=== PATIENT | female | born 2005 | race Caucasian/White ===

== ENCOUNTER 2025-03-03 18:10 | Emergency (ER) | payer OTHER, SELFPAY ==
--- OUTSIDE RECORDS SUMMARY | 2025-03-03 18:13 | XMS_ITS | Patient Health Record ---
Author Organization [facility] [employer] Address [address] [facility] [address] [place] [address] Care Team Providers Care Medicare Sales Executive Name Role Phone WyattMartín kennedy Unavailable [phone] James Pa Unavailable [phone] Results Component Value Reference Range Notes UDT Reviewed date:07/14/2024 01:54:28 PM Interpretation: Performing Lab: Notes/Report: THC P 0 - 50 ng/ml Cocaine N 0 - 300 ng/ml Amphetamine N 0 - 1000 ng/ml Buprenorphine (BUP) N 0 - 10 ng/ml Secobarbital (Bar) N 0 - 300 ng/ml Oxazepam (BZO) N 0 - 300 ng/ml 4-kpcnntgxqn-6,4-gleshcdw-7,3-diphenylpyrrolidine (AMANUEL P) N 0 - 300 ng/ml Methamphetamine (MET) N 0 - 1000 ng/ml Methylenedioxymethamphetamine (MDMA) N 0 - 500 ng/ml Morphine (MOP 300/[id number]) N 0 - 300 ng/ml Methadone (MTD) N 0 - 300 ng/ml Phencyclidine (PCP) N 0 - 25 ng/ml Nortriptyline (TCA) N 0 - 1000 ng/ml Oxycodone N 0 - 300 ng/ml x N 0 - 300 ng/ml Reason For Referral No Information Medications Medication SIG (Take, Route, Frequency, Duration) Notes Start Date End Date Status Contrave 8-90 MG TAKE ONE TABLET BY M OUTH EVERY DAY Oral for 14 Days Active metFORMIN HCl 500 MG TAKE TWO TABLETS BY MOUTH TWICE A DAY Oral for 30 Days Active Vitamin D 50 MCG (1999 UT) 1 tablet Oral ly Once a day Active ARIPiprazole 15 MG 1 tablet Orally Once a day for 14 days 07/14/2024 Active Tri-Rosalind 0.18/0.215/0.25 MG-35 MCG TAKE ONE TABLET BY MOUTH EVERY DAY Oral for 84 Days Active Social History Tobacco Use: Social History Observation Description Date Details (start date - stop date) Current Smoker NA - NA Sex Assigned At : Social History Observation Description Sex Assigned At Female Household Question Answer Notes Number of adults in household: T he patient is currently living with her mother and younger brother 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 Tobacco Control (Standard) Question Answer Notes Tobacco use: Current smoker How soon after you wake up d o you smoke your first cigarette? Within 5 minutes Are you interested in quitting? Thinking about q uitting AUDIT-C (Standard) Question Answer Notes Points 7 Interpretation Positive Did you have a drink contain ing alcohol in the past year? Yes How often did you have six o r more drinks on one occasion in the past year? 2 to 4 times a month (2 points) How many drinks did you have on a typical day when you were drinking in the past year? 5 or 6 drinks (2 points) How often did you have a dri nk containing alcohol in the past year? 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) Marijuana use (F12.90) Active confirmed Problem Insomnia disorder related to another mental disorder (35024645) Psychophysiological insomnia (F51.04) Active confirmed Vital Signs Heart Rate 85 /min 07/14/2024 Blood pressure diastolic 54 mm Hg 07/14/2024 Weight-kg 77.2 kg 07/14/2024 Blood pressure systolic 90 mm Hg 07/14/2024 Weight 170.2 lbs 07/14/2024 Procedures Procedure Date Ordered Date Performed Result Body Sit e ADHD Testing 07/14/2024 N/A Encounters Encounter Location Date Provider Diagnosis [facility] [address] [place] [address] 07/14/2024 Martín Clubb Bipolar 2 disorder F 31.81 ; Marijuana use F12.90 ; Psychophysiological insomnia F51.04 ; Nonsuicidal self-harm R45.88 ; ADHD (attention deficit hyperactivity disorder) evaluation Z13.39 ; Nightmares F51.5 and ALCIRA (generalized anxiety disorder) F41.1 [facility] [address] [place] [address] 07/31/2024 Jamesvicki Sandhua Assessments Encounter Date Diagnosis (ICD Code) Assessment Notes Treatment Notes Treatment Clinical Notes Section Notes 07/14/2024 Bipolar 2 disorder (ICD-10 - F31.81) Call for problems with medication, side effects or need for dosage change. adherence to medications discussed. Compliance issues reviewed, Discussed medication side effects. Discussion of avoiding stress, marijuana, alcohol. Healthy lifestyle discussed with patient, including diet, vitamin supplement, exercise, non-smoking, safe sexual practices and reduction of stress. Assessment and plan reviewed with patient. Treatment options reviewed 1. Bipolar II Disorder - Plan: Discontinue Vraylar due to adverse effects and ineffectiveness for depressive symptoms (patient reports she has not taken this medication for weeks/months). Start Aripiprazole 15 mg daily, aiming to increase to 30 mg daily. Monitor for insomnia and weight gain, advising the patient on the best time to take medication based on side effects. Schedule a follow-up in two weeks to evaluate Aripiprazole's effectiveness and consider switching to an extended-release version if well-tolerated. 2. Post-Traumatic Stress Disorder (PTSD) and Nightmares - Plan: Postpone medication for nightmares until the patient is stabilized on Aripiprazole and bipolar symptoms are managed. Encourage establishing care with a therapist for ongoing psychotherapy. She reports experiencing nightmares almost nightly. 3. Anxiety Disorder - Plan: Continue to monitor anxiety levels during follow-up visits. Recommend therapy for anxiety management. She rates current anxiety at 9/10. 4. Attention Deficit Hyperactivity Disorder (ADHD) - Suspected - Plan: Arrange an ADHD assessment. Plan a follow-up appointment one week post-assessment to discuss the results and potential treatment options if ADHD is diagnosed. 5. Sleep Disturbance - Plan: Assess sleep quality and duration during subsequent visits. Address sleep issues by managing bipolar and PTSD symptoms. She reports obtaining 3-4 hours of sleep per night. 6. Vitamin D Deficiency - Suspected - Plan: Order comprehensive blood work, including checks for vitamin D, thyroid, liver, CBC, and CMP levels. Advise the patient to continue prescribed vitamin D supplements, with a possibility of adjusting the dosage based on lab outcomes. She reports taking 5,000 IU of vitamin D twice daily. 7. Tobacco and Cannabis Use - Plan: Encourage the continuation of Contrave for nicotine addiction management. Monitor medication response and consider dosage adjustments, especially regarding the potential impact of smoking on medication efficacy. She reports occasional vaping of nicotine and cannabis use on weekends. 8. Self-Harm - Plan: Advise the patient to maintain a clean and safe environment when engaging in self-harm behaviors and use Neosporin to prevent infection. Address self-harm through therapy and management of underlying mental health conditions. She reports using cutting or burning as methods of self-harm. 9. Paranoia - Plan: Monitor paranoid thoughts, which she reports experiencing almost every night, particularly when unable to sleep. 07/14/2024 Marijuana use (ICD-1 0 - F12.90) 1. Bipolar II Disorder - Plan: Discontinue Vraylar due to adverse effects and ineffectiveness for depressive symptoms (patient reports she has not taken this medication for weeks/months). Start Aripiprazole 15 mg daily, aiming to increase to 30 mg daily. Monitor for insomnia and weight gain, advising the patient on the best time to take medication based on side effects. Schedule a follow-up in two weeks to evaluate Aripiprazole's effectiveness and consider switching to an extended-release version if well-tolerated. 2. Post-Traumatic Stress Disorder (PTSD) and Nightmares - Plan: Postpone medication for nightmares until the patient is stabilized on Aripiprazole and bipolar symptoms are managed. Encourage establishing care with a therapist for ongoing psychotherapy. She reports experiencing nightmares almost nightly. 3. Anxiety Disorder - Plan: Continue to monitor anxiety levels during follow-up visits. Recommend therapy for anxiety management. She rates current anxiety at 9/10. 4. Attention Deficit Hyperactivity Disorder (ADHD) - Suspected - Plan: Arrange an ADHD assessment. Plan a follow-up appointment one week post-assessment to discuss the results and potential treatment options if ADHD is diagnosed. 5. Sleep Disturbance - Plan: Assess sleep quality and duration during subsequent visits. Address sleep issues by managing bipolar and PTSD symptoms. She reports obtaining 3-4 hours of sleep per night. 6. Vitamin D Deficiency - Suspected - Plan: Order comprehensive blood work, including checks for vitamin D, thyroid, liver, CBC, and CMP levels. Advise the patient to continue prescribed vitamin D supplements, with a possibility of adjusting the dosage based on lab outcomes. She reports taking 5,000 IU of vitamin D twice daily. 7. Tobacco and Cannabis Use - Plan: Encourage the continuation of Contrave for nicotine addiction management. Monitor medication response and consider dosage adjustments, especially regarding the potential impact of smoking on medication efficacy. She reports occasional vaping of nicotine and cannabis use on weekends. 8. Self-Harm - Plan: Advise the patient to maintain a clean and safe environment when engaging in self-harm behaviors and use Neosporin to prevent infection. Address self-harm through therapy and management of underlying mental health conditions. She reports using cutting or burning as methods of self-harm. 9. Paranoia - Plan: Monitor paranoid thoughts, which she reports experiencing almost every night, particularly when unable to sleep. 07/14/2024 Psychophysiological insomnia (ICD-10 - F51.04) 1. Bipolar II Disorder - Plan: Discontinue Vraylar due to adverse effects and ineffectiveness for depressive symptoms (patient reports she has not taken this medication for weeks/months). Start Aripiprazole 15 mg daily, aiming to increase to 30 mg daily. Monitor for insomnia and weight gain, advising the patient on the best time to take medication based on side effects. Schedule a follow-up in two weeks to evaluate Aripiprazole's effectiveness and consider switching to an extended-release version if well-tolerated. 2. Post-Traumatic Stress Disorder (PTSD) and Nightmares - Plan: Postpone medication for nightmares until the patient is stabilized on Aripiprazole and bipolar symptoms are managed. Encourage establishing care with a therapist for ongoing psychotherapy. She reports experiencing nightmares almost nightly. 3. Anxiety Disorder - Plan: Continue to monitor anxiety levels during follow-up visits. Recommend therapy for anxiety management. She rates current anxiety at 9/10. 4. Attention Deficit Hyperactivity Disorder (ADHD) - Suspected - Plan: Arrange an ADHD assessment. Plan a follow-up appointment one week post-assessment to discuss the results and potential treatment options if ADHD is diagnosed. 5. Sleep Disturbance - Plan: Assess sleep quality and duration during subsequent visits. Address sleep issues by managing bipolar and PTSD symptoms. She reports obtaining 3-4 hours of sleep per night. 6. Vitamin D Deficiency - Suspected - Plan: Order comprehensive blood work, including checks for vitamin D, thyroid, liver, CBC, and CMP levels. Advise the patient to continue prescribed vitamin D supplements, with a possibility of adjusting the dosage based on lab outcomes. She reports taking 5,000 IU of vitamin D twice daily. 7. Tobacco and Cannabis Use - Plan: Encourage the continuation of Contrave for nicotine addiction management. Monitor medication response and consider dosage adjustments, especially regarding the potential impact of smoking on medication efficacy. She reports occasional vaping of nicotine and cannabis use on weekends. 8. Self-Harm - Plan: Advise the patient to maintain a clean and safe environment when engaging in self-harm behaviors and use Neosporin to prevent infection. Address self-harm through therapy and management of underlying mental health conditions. She reports using cutting or burning as methods of self-harm. 9. Paranoia - Plan: Monitor paranoid thoughts, which she reports experiencing almost every night, particularly when unable to sleep. 07/14/2024 Nonsuicidal self-shadia m (ICD-10 - R45.88) 1. Bipolar II Disorder - Plan: Discontinue Vraylar due to adverse effects and ineffectiveness for depressive symptoms (patient reports she has not taken this medication for weeks/months). Start Aripiprazole 15 mg daily, aiming to increase to 30 mg daily. Monitor for insomnia and weight gain, advising the patient on the best time to take medication based on side effects. Schedule a follow-up in two weeks to evaluate Aripiprazole's effectiveness and consider switching to an extended-release version if well-tolerated. 2. Post-Traumatic Stress Disorder (PTSD) and Nightmares - Plan: Postpone medication for nightmares until the patient is stabilized on Aripiprazole and bipolar symptoms are managed. Encourage establishing care with a therapist for ongoing psychotherapy. She reports experiencing nightmares almost nightly. 3. Anxiety Disorder - Plan: Continue to monitor anxiety levels during follow-up visits. Recommend therapy for anxiety management. She rates current anxiety at 9/10. 4. Attention Deficit Hyperactivity Disorder (ADHD) - Suspected - Plan: Arrange an ADHD assessment. Plan a follow-up appointment one week post-assessment to discuss the results and potential treatment options if ADHD is diagnosed. 5. Sleep Disturbance - Plan: Assess sleep quality and duration during subsequent visits. Address sleep issues by managing bipolar and PTSD symptoms. She reports obtaining 3-4 hours of sleep per night. 6. Vitamin D Deficiency - Suspected - Plan: Order comprehensive blood work, including checks for vitamin D, thyroid, liver, CBC, and CMP levels. Advise the patient to continue prescribed vitamin D supplements, with a possibility of adjusting the dosage based on lab outcomes. She reports taking 5,000 IU of vitamin D twice daily. 7. Tobacco and Cannabis Use - Plan: Encourage the continuation of Contrave for nicotine addiction management. Monitor medication response and consider dosage adjustments, especially regarding the potential impact of smoking on medication efficacy. She reports occasional vaping of nicotine and cannabis use on weekends. 8. Self-Harm - Plan: Advise the patient to maintain a clean and safe environment when engaging in self-harm behaviors and use Neosporin to prevent infection. Address self-harm through therapy and management of underlying mental health conditions. She reports using cutting or burning as methods of self-harm. 9. Paranoia - Plan: Monitor paranoid thoughts, which she reports experiencing almost every night, particularly when unable to sleep. 07/14/2024 ADHD (attention deficit hyperactivity disorder) evaluation (ICD-10 - Z13.39) 1. Bipolar II Disorder - Plan: Discontinue Vraylar due to adverse effects and ineffectiveness for depressive symptoms (patient reports she has not taken this medication for weeks/months). Start Aripiprazole 15 mg daily, aiming to increase to 30 mg daily. Monitor for insomnia and weight gain, advising the patient on the best time to take medication based on side effects. Schedule a follow-up in two weeks to evaluate Aripiprazole's effectiveness and consider switching to an extended-release version if well-tolerated. 2. Post-Traumatic Stress Disorder (PTSD) and Nightmares - Plan: Postpone medication for nightmares until the patient is stabilized on Aripiprazole and bipolar symptoms are managed. Encourage establishing care with a therapist for ongoing psychotherapy. She reports experiencing nightmares almost nightly. 3. Anxiety Disorder - Plan: Continue to monitor anxiety levels during follow-up visits. Recommend therapy for anxiety management. She rates current anxiety at 9/10. 4. Attention Deficit Hyperactivity Disorder (ADHD) - Suspected - Plan: Arrange an ADHD assessment. Plan a follow-up appointment one week post-assessment to discuss the results and potential treatment options if ADHD is diagnosed. 5. Sleep Disturbance - Plan: Assess sleep quality and duration during subsequent visits. Address sleep issues by managing bipolar and PTSD symptoms. She reports obtaining 3-4 hours of sleep per night. 6. Vitamin D Deficiency - Suspected - Plan: Order comprehensive blood work, including checks for vitamin D, thyroid, liver, CBC, and CMP levels. Advise the patient to continue prescribed vitamin D supplements, with a possibility of adjusting the dosage based on lab outcomes. She reports taking 5,000 IU of vitamin D twice daily. 7. Tobacco and Cannabis Use - Plan: Encourage the continuation of Contrave for nicotine addiction management. Monitor medication response and consider dosage adjustments, especially regarding the potential impact of smoking on medication efficacy. She reports occasional vaping of nicotine and cannabis use on weekends. 8. Self-Harm - Plan: Advise the patient to maintain a clean and safe environment when engaging in self-harm behaviors and use Neosporin to prevent infection. Address self-harm through therapy and management of underlying mental health conditions. She reports using cutting or burning as methods of self-harm. 9. Paranoia - Plan: Monitor paranoid thoughts, which she reports experiencing almost every night, particularly when unable to sleep. 07/14/2024 Nightmares (ICD-10 - F51.5) 1. Bipolar II Disorder - Plan: Discontinue Vraylar due to adverse effects and ineffectiveness for depressive symptoms (patient reports she has not taken this medication for weeks/months). Start Aripiprazole 15 mg daily, aiming to increase to 30 mg daily. Monitor for insomnia and weight gain, advising the patient on the best time to take medication based on side effects. Schedule a follow-up in two weeks to evaluate Aripiprazole's effectiveness and consider switching to an extended-release version if well-tolerated. 2. Post-Traumatic Stress Disorder (PTSD) and Nightmares - Plan: Postpone medication for nightmares until the patient is stabilized on Aripiprazole and bipolar symptoms are managed. Encourage establishing care with a therapist for ongoing psychotherapy. She reports experiencing nightmares almost nightly. 3. Anxiety Disorder - Plan: Continue to monitor anxiety levels during follow-up visits. Recommend therapy for anxiety management. She rates current anxiety at 9/10. 4. Attention Deficit Hyperactivity Disorder (ADHD) - Suspected - Plan: Arrange an ADHD assessment. Plan a follow-up appointment one week post-assessment to discuss the results and potential treatment options if ADHD is diagnosed. 5. Sleep Disturbance - Plan: Assess sleep quality and duration during subsequent visits. Address sleep issues by managing bipolar and PTSD symptoms. She reports obtaining 3-4 hours of sleep per night. 6. Vitamin D Deficiency - Suspected - Plan: Order comprehensive blood work, including checks for vitamin D, thyroid, liver, CBC, and CMP levels. Advise the patient to continue prescribed vitamin D supplements, with a possibility of adjusting the dosage based on lab outcomes. She reports taking 5,000 IU of vitamin D twice daily. 7. Tobacco and Cannabis Use - Plan: Encourage the continuation of Contrave for nicotine addiction management. Monitor medication response and consider dosage adjustments, especially regarding the potential impact of smoking on medication efficacy. She reports occasional vaping of nicotine and cannabis use on weekends. 8. Self-Harm - Plan: Advise the patient to maintain a clean and safe environment when engaging in self-harm behaviors and use Neosporin to prevent infection. Address self-harm through therapy and management of underlying mental health conditions. She reports using cutting or burning as methods of self-harm. 9. Paranoia - Plan: Monitor paranoid thoughts, which she reports experiencing almost every night, particularly when unable to sleep. 07/14/2024 ALCIRA (generalized anxiety disorder) (ICD-10 - F41.1) 1. Bipolar II Disorder - Plan: Discontinue Vraylar due to adverse effects and ineffectiveness for depressive symptoms (patient reports she has not taken this medication for weeks/months). Start Aripiprazole 15 mg daily, aiming to increase to 30 mg daily. Monitor for insomnia and weight gain, advising the patient on the best time to take medication based on side effects. Schedule a follow-up in two weeks to evaluate Aripiprazole's effectiveness and consider switching to an extended-release version if well-tolerated. 2. Post-Traumatic Stress Disorder (PTSD) and Nightmares - Plan: Postpone medication for nightmares until the patient is stabilized on Aripiprazole and bipolar symptoms are managed. Encourage establishing care with a therapist for ongoing psychotherapy. She reports experiencing nightmares almost nightly. 3. Anxiety Disorder - Plan: Continue to monitor anxiety levels during follow-up visits. Recommend therapy for anxiety management. She rates current anxiety at 9/10. 4. Attention Deficit Hyperactivity Disorder (ADHD) - Suspected - Plan: Arrange an ADHD assessment. Plan a follow-up appointment one week post-assessment to discuss the results and potential treatment options if ADHD is diagnosed. 5. Sleep Disturbance - Plan: Assess sleep quality and duration during subsequent visits. Address sleep issues by managing bipolar and PTSD symptoms. She reports obtaining 3-4 hours of sleep per night. 6. Vitamin D Deficiency - Suspected - Plan: Order comprehensive blood work, including checks for vitamin D, thyroid, liver, CBC, and CMP levels. Advise the patient to continue prescribed vitamin D supplements, with a possibility of adjusting the dosage based on lab outcomes. She reports taking 5,000 IU of vitamin D twice daily. 7. Tobacco and Cannabis Use - Plan: Encourage the continuation of Contrave for nicotine addiction management. Monitor medication response and consider dosage adjustments, especially regarding the potential impact of smoking on medication efficacy. She reports occasional vaping of nicotine and cannabis use on weekends. 8. Self-Harm - Plan: Advise the patient to maintain a clean and safe environment when engaging in self-harm behaviors and use Neosporin to prevent infection. Address self-harm through therapy and management of underlying mental health conditions. She reports using cutting or burning as methods of self-harm. 9. Paranoia - Plan: Monitor paranoid thoughts, which she reports experiencing almost every night, particularly when unable to sleep. 07/14/2024 Other Learning About Depression Screening material was printed, Aripiprazole Oral Tablet 15 mg (ARIPIPRAZOLE - ORAL) material was published The patient has previously tried Lamotrigine, Vraylar, and Fluoxetine without satisfactory results. Currently, the patient is experiencing side effects such as brain fog from Vraylar 1. Bipolar II Disorder - Plan: Discontinue Vraylar due to adverse effects and ineffectiveness for depressive symptoms (patient reports she has not taken this medication for weeks/months). Start Aripiprazole 15 mg daily, aiming to increase to 30 mg daily. Monitor for insomnia and weight gain, advising the patient on the best time to take medication based on side effects. Schedule a follow-up in two weeks to evaluate Aripiprazole's effectiveness and consider switching to an extended-release version if well-tolerated. 2. Post-Traumatic Stress Disorder (PTSD) and Nightmares - Plan: Postpone medication for nightmares until the patient is stabilized on Aripiprazole and bipolar symptoms are managed. Encourage establishing care with a therapist for ongoing psychotherapy. She reports experiencing nightmares almost nightly. 3. Anxiety Disorder - Plan: Continue to monitor anxiety levels during follow-up visits. Recommend therapy for anxiety management. She rates current anxiety at 9/10. 4. Attention Deficit Hyperactivity Disorder (ADHD) - Suspected - Plan: Arrange an ADHD assessment. Plan a follow-up appointment one week post-assessment to discuss the results and potential treatment options if ADHD is diagnosed. 5. Sleep Disturbance - Plan: Assess sleep quality and duration during subsequent visits. Address sleep issues by managing bipolar and PTSD symptoms. She reports obtaining 3-4 hours of sleep per night. 6. Vitamin D Deficiency - Suspected - Plan: Order comprehensive blood work, including checks for vitamin D, thyroid, liver, CBC, and CMP levels. Advise the patient to continue prescribed vitamin D supplements, with a possibility of adjusting the dosage based on lab outcomes. She reports taking 5,000 IU of vitamin D twice daily. 7. Tobacco and Cannabis Use - Plan: Encourage the continuation of Contrave for nicotine addiction management. Monitor medication response and consider dosage adjustments, especially regarding the potential impact of smoking on medication efficacy. She reports occasional vaping of nicotine and cannabis use on weekends. 8. Self-Harm - Plan: Advise the patient to maintain a clean and safe environment when engaging in self-harm behaviors and use Neosporin to prevent infection. Address self-harm through therapy and management of underlying mental health conditions. She reports using cutting or burning as methods of self-harm. 9. Paranoia - Plan: Monitor paranoid thoughts, which she reports experiencing almost every night, particularly when unable to sleep. Plan Of Treatment Pending Test Test Name Order Date Vitamin D, 1,25 Dihydroxy 07/14/2024 CBC 07/14/2024 COMPREHENSIVE METABOLIC PANEL (77042) AST (822) 07/14/2024 ALT (823) 07/14/2024 VITAMIN B12 (927) 07/14/2024 TSH W/REFLEX TO FT4 (74461) 07/14/2024 ADHD Testing 07/14/2024 Insurance Providers Payer Name Payer Address Payer Phone Subscriber Number Group Number Insured Name Patient Relationship to Insured Coverage Start Date Coverage End Date [facility] [address] [place] [address] [id number] Tiffanie Martin Self - patient is the insured [facility] [address] [place] [address] [id number] Tiffanie Martin Self - patient is the insured Medical (General) History Medical History History ICD Code Past Psychiatric History: PTSD,Major Dep ressive Episode,Bipolar Disorder abdominal aortic aneurysm: No atrial fibrillation: No chronic fatigue syndrome: No essential tremor: No hyperlipidemia: No hypertension: No Parkinson's disease: No restless leg syndrome: No stroke: No subdural hematoma: No type 1 diabetes mellitus: No type 2 diabetes mellitus: No vitamin B12 deficiency: No vitamin D deficiency: Yes
[2025-03-03 18:16] VITALS: BP 150/100; PULSE 126; RESP 18; TEMP 36.2; O2SAT 98
--- NOTE | 2025-03-03 18:25 | ECG_ITS ---
Test Date: 2025-03-03 18:49:20 Measurements Intervals Mobile Rate: 93 P: 11 AR: 156 QRS: 24 QRSD: 81 T: 26 QT: 325 QTc: 405 Interpretive Statements SINUS RHYTHM RSR' IN V1 OR V2, PROBABLY NORMAL VARIANT BASELINE ARTIFACT- III, V6 BORDERLINE ECG No previous ECG available for comparison Electronically Signed On 03-03-2025 20:09:03 CDT by Luis Egan D.O.
[2025-03-03 18:38] VITALS: O2SAT 97
[2025-03-03 18:40] LABS: Basophils Absolute Auto 0.1 K/mm3 (0.0-0.1); Basophils Percent Auto 0.4 % (0.2-1.2); Eosinophils Absolute Auto 0.6 K/mm3 (0-0.3); Eosinophils Percent Auto 4.3 % (0-4.4); Hematocrit 37.5 % (37.0-47.0); Hemoglobin 12.3 g/dL (12.0-15.0); Immature Granulocyte Absolute 0.06 K/mm3 (0.00-0.031); Immature Granulocyte Percent A 0.5 % (0-0.5); Lymphocytes Percent Auto 31.3 % (18.3-44.2); Mean Corpuscular HGB Conc 32.8 g/dl (32-36); Mean Corpuscular Hemoglobin 29.9 pg (26-34); Mean Corpuscular Volume 91.2 fl (80-100); Mean Platelet Volume 9.5 fl (7.4-10.4); Monocytes Absolute Auto 0.9 K/mm3 (0.1-0.6); Monocytes Percent Auto 6.8 % (2.6-8.5); Neutrophils Absolute Auto 7.4 K/mm3 (1.3-6.7); Neutrophils Percent Auto 56.7 % (45.5-73.1); Platelet Count Result 313 k/mm3 (150-375); Red Blood Count 4.11 M/mm3 (4.2-5.4); Red Cell Distribution Width 11.9 % (11.5-14.5); White Blood Count 13.1 K/mm3 (4.5-10.0)
[2025-03-03 18:50] LABS: Alanine Aminotransferase 23 U/L (6-35); Albumin Level 3.6 g/dL (3.5-5.1); Alkaline Phosphatase 81 U/L (38-126); Anion Gap 8 mmol/L (4-12); Aspartate Amino Transferase 22 U/L (14-36); Bilirubin,Total 0.2 mg/dL (0.2-1.3); Blood Urea Nitrogen 8 mg/dL (7-17); Carbon Dioxide 22 mmol/L (22-30); Chloride 106 mmol/L (98-107); Estimated CRCL calculation 160 ml/min; Estimated Glomerular Filt Rate > 60; Glucose 101 mg/dL (65-110); Potassium 3.6 mmol/L (3.4-5.0); Sodium 136 mmol/L (137-145)
[2025-03-03 19:50] VITALS: PULSE 88; RESP 20; O2SAT 94
--- NOTE | 2025-03-03 20:29 | ED.GENADULT ---
HPI - General Adult General Chief complaint: Shortness of Breath/Dyspnea Stated complaint: positive whooping cough, 22 weeks pregn, SOB Time Seen by Provider: 03/03/25 18:32 History of Present Illness HPI narrative: 19-year-old female that is approximately 22 weeks presents emergency department for evaluation for poorly controlled cough. Patient was recently diagnosed with per ptosis and is currently antibiotics. Patient states that she is having persistent cough and describes bronchospasms. Patient did excessive coughing in the emergency department. Related Data Home Medications ?Medication ?Instructions ?Recorded ?Confirmed ?Last Taken ?Type docusate sodium 100 mg capsule 100 mg PO DAILY 01/12/25 02/23/25 Unknown History (Colace) vits no.126-ferrous fum tablet PO 01/12/25 02/23/25 Unknown History 28 mg iron-folic acid 800 mcg tablet (Classic ) Allergies Allergy/AdvReac Type Severity Reaction Status Date / Time No Known Allergies Allergy Verified 03/03/25 18:11 Review of Systems Review of Systems: All systems reviewed & are unremarkable except as noted in HPI and below PMFSH Surgical History Surgical History Hx of tonsillectomy H/O bilateral breast reduction surgery Family History Family History Mother Diabetes mellitus Father Heart disease Hypertension Lung cancer Other Asthma Social History Social History Smoking status: Former smoker Tobacco type: e-cigarettes/vaping Alcohol intake: current Alcohol use details: rarely Substance use: former Substance use type: marijuana and crack/cocaine Do You Feel Safe in your Home?: Yes Lack of Transportation: No Lack of Food: Never True Current Housing: I Have Housing Concerned About Future Housing: No Difficulty Paying Gas/Electric Bills: No Difficulty Paying for Meds: No Currently Unemployed: No Education: High School Diploma/GED Difficulty w/ Childcare or Family Care: No Living arrangements: with family Occupation/Education: unemployed Gender identity (if verbalized by the patient): Female Exam Narrative: APPEARANCE: Well appearing, no pain, no distress, well-nourished. HEAD: normocephalic, atraumatic. EYES: PERRLA/EOMI, conjunctivae clear. NOSE: Normal no drainage EARS:TMS clear with good light reflex. THROAT: Pharynx clear, no exudate. NECK: Supple. No adenopathy, no masses. RESPIRATORY: Airway patent, respirations nonlabored. Clear to auscultation bilaterally, no rales, rhonchi, wheezing. CARDIOVASCULAR: Regular rate and rhythm without murmurs rubs or gallops. ABDOMINAL: Soft, nontender, nondistended, normal bowel sounds MUSCULOSKELETAL: Moves all extremities. Strength/ROM intact, No edema, No calf tenderness. NEURO: Alert. Cranial nerves II through XII intact. Good gait. Good coordination SKIN: Warm, dry. Normal Color Course Vital Signs Vital signs: Vital Signs Temperature 97.2 F L 03/03/25 18:16 Pulse Rate 126 H 03/03/25 18:16 Respiratory Rate 18 03/03/25 18:16 Blood Pressure 150/100 H 03/03/25 18:16 Pulse Oximetry 98 03/03/25 18:16 Temperature 98.3 F 03/03/25 20:51 Pulse Rate 86 03/03/25 20:51 Respiratory Rate 18 03/03/25 20:51 Blood Pressure 128/76 03/03/25 20:51 Pulse Oximetry 99 03/03/25 20:51 Oxygen Delivery Room Air 03/03/25 18:38 Medical Decision Making MDM Narrative Medical decision making narrative: 19-year-old female presents emergency department for evaluation for poorly-controlled cough during the a ongoing pertussis infection. Patient is continue take her antibiotics. Patient was provided a short course for Tylenol 3 to help with cough suppression. Patient was also encouraged to have close follow-up with her OB Gyne primary care physician. Patient family were updated on the risks of taking the Tylenol with codeine, all questions concerns were addressed. Patient was well-appearing at time of discharge Differential Diagnosis Differential Diagnosis: Pertussis, bronchospasm, Vital Signs Vital Signs: Vital Signs Temperature 97.2 F L 03/03/25 18:16 Pulse Rate 126 H 03/03/25 18:16 Respiratory Rate 18 03/03/25 18:16 Blood Pressure 150/100 H 03/03/25 18:16 Pulse Oximetry 98 03/03/25 18:16 Temperature 98.3 F 03/03/25 20:51 Pulse Rate 86 03/03/25 20:51 Respiratory Rate 18 03/03/25 20:51 Blood Pressure 128/76 03/03/25 20:51 Pulse Oximetry 99 03/03/25 20:51 Oxygen Delivery Room Air 03/03/25 18:38 Lab Data 03/03/25 18:34 03/03/25 18:34 Labs: Lab Results 03/03/25 Range/Units 18:34 WBC 13.1 H (4.5-10.0) K/mm3 RBC 4.11 L (4.2-5.4) M/mm3 Hgb 12.3 (12.0-15.0) g/dL Hct 37.5 (37.0-47.0) % MCV 91.2 (80-100) fl MCH 29.9 (26-34) pg MCHC 32.8 (32-36) g/dl RDW 11.9 (11.5-14.5) % Plt Count 313 (150-375) k/mm3 MPV 9.5 (7.4-10.4) fl Immature Gran % (Auto) 0.5 (0-0.5) % Neut % (Auto) 56.7 (45.5-73.1) % Lymph % (Auto) 31.3 (18.3-44.2) % [place] % (Auto) 6.8 (2.6-8.5) % Eos % (Auto) 4.3 (0-4.4) % Baso % (Auto) 0.4 (0.2-1.2) % Lymph # (Auto) 4.10 H (0.9-3.2) K/mm3 [place] # (Auto) 0.9 H (0.1-0.6) K/mm3 Eos # (Auto) 0.6 H (0-0.3) K/mm3 Baso # (Auto) 0.1 (0.0-0.1) K/mm3 Abs Immat Gran (auto) 0.06 H (0.00-0.031) K/mm3 Absolute Neuts (auto) 7.4 H (1.3-6.7) K/mm3 Absolute Nucleated RBC 0.000 (0.0-0.012) K/mm3 Nucleated RBC % 0.0 (0.0-0.2) % Sodium 136 L (137-145) mmol/L Potassium 3.6 (3.4-5.0) mmol/L Chloride 106 (98-107) mmol/L Carbon Dioxide 22 (22-30) mmol/L Anion Gap 8 (4-12) mmol/L BUN 8 (7-17) mg/dL Creatinine 0.47 L (0.7-1.0) mg/dL Estim Creat Clear Calc 160 ml/min Estimated GFR > 60 (59 - ) Glucose 101 (65-110) mg/dL Calcium 9.0 (8.4-10.2) mg/dL Total Bilirubin 0.2 (0.2-1.3) mg/dL AST 22 (14-36) U/L ALT 23 (6-35) U/L Alkaline Phosphatase 81 (38-126) U/L Total Protein 7.0 (6.3-8.2) g/dL Albumin 3.6 (3.5-5.1) g/dL Discharge Plan Discharge Clinical Impression: Cough Patient Disposition: Home Condition: Stable Instructions: Antibiotic Form Additional Instructions: Tylenol with codeine for cough. Continue have close follow-up with your physicians. If you have any worsening symptoms please call or return to the emergency department. Patient Language: Malay Prescriptions: New acetaminophen-codeine 300-30 mg tablet 1 tablet PO Q8H PRN (Reason: cough) 5 Days Qty: 14 0RF No Action Classic 28 mg iron- 800 mcg tablet PO docusate sodium [Colace] 100 mg capsule 100 mg PO DAILY bupropion HCl [Wellbutrin SR] 150 mg tablet sustained-release 12 hr 150 mg PO DAILY Qty: 90 3RF benzonatate 100 mg capsule 100 mg PO TID PRN (Reason: cough) Qty: 60 0RF Follow-up/Referrals: PHYSICIAN,LICENSED FUNERAL DIRECTOR AND EMBALMER [Primary Care Provider] -
[2025-03-03] MEDS: ACETAMINOPHEN/CODEINE (*CRX) 300/30 MG TABLET 1 TAB PO (20:47)
[2025-03-03 20:51] VITALS: BP 128/76; PULSE 86; RESP 18; TEMP 36.8; O2SAT 99
== END 2025-03-03 21:04 | disposition home or self-care (01) ==
PROVIDERS: Emergency Medicine; Emergency Provider Emergency Medicine
DX: R05.9 Cough, unspecified (principal)
CPT/HCPCS: 36415; 80053; 85025; 93005; 99283; A9270

== ENCOUNTER 2025-05-17 00:09 | Outpatient (CLI) | payer OTHER, SELFPAY ==
--- OUTSIDE RECORDS SUMMARY | 2025-05-17 00:19 | XMS_ITS | Patient Health Record ---
Author Organization [facility] [employer] Address [address] [facility] [address] [place] [address] Care Team Providers Care Solid State Tester Name Role Phone WyattMartín kennedy Unavailable [phone] James Pa Unavailable [phone] Results Component Value Reference Range Notes UDT Reviewed date:07/14/2024 01:54:28 PM Interpretation: Performing Lab: Notes/Report: THC P 0 - 50 ng/ml Cocaine N 0 - 300 ng/ml Amphetamine N 0 - 1000 ng/ml Buprenorphine (BUP) N 0 - 10 ng/ml Secobarbital (Bar) N 0 - 300 ng/ml Oxazepam (BZO) N 0 - 300 ng/ml 0-hrkvitzami-8,4-ibllrmia-5,3-diphenylpyrrolidine (AMANUEL P) N 0 - 300 ng/ml Methamphetamine (MET) N 0 - 1000 ng/ml Methylenedioxymethamphetamine (MDMA) N 0 - 500 ng/ml Morphine (MOP 300/MZB2506) N 0 - 300 ng/ml Methadone (MTD) [...] ONE TABLET BY M OUTH EVERY DAY Oral; Duration: 14 Days Active metFORMIN HCl 500 MG TAKE TWO TABLETS BY MOUTH TWICE A DAY Oral; Duration: 30 Days Active Vitamin D 50 MCG (1999) 1 tablet Oral ly Once a day Active ARIPiprazole 15 MG 1 tablet Orally Once a day; Duration: 14 days 07/14/2024 Active Tri-Rosalind 0.18/0.215/0.25 MG-35 MCG TAKE ONE TABLET BY MOUTH EVERY DAY Oral; Duration: 84 Days Active Social History Tobacco Use: [...] 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 Tobacco Control (Standard) Question Answer [...] Problem Status W/U Status Risk Notes Problem Self-injurious behavior (finding) (901755294) Nonsuicidal self-harm (R45.88) Active confirmed Problem Bipolar 2 disorder (77010547) Bipolar 2 disorder (F31.81) Active confirmed Problem Generalized anxiety disorder (52936260) ALCIRA (generalized anxiety disorder) (F41.1) Active confirmed Problem Nightmares (272019890) Nightmares (F51.5) Active confirmed Problem Nondependent cannabis abuse (057153610) Marijuana use (F12.90) Active confirmed Problem Insomnia disorder related to another mental disorder (01758843) Psychophysiological insomnia (F51.04) Active confirmed Vital Signs Heart Rate 85 /min 07/14/2024 Blood pressure diastolic 54 mm Hg 07/14/2024 Weight-kg 77.2 kg 07/14/2024 Blood pressure systolic 90 mm Hg 07/14/2024 Weight 170.2 lbs 07/14/2024 Procedures Procedure Date Ordered Date Performed Result Body Sit e ADHD Testing 07/14/2024 N/A Encounters Encounter Location Date Provider Diagnosis [facility] [address] [place] [address] 07/14/2024 Martín Melo Bipolar 2 disorder F 31.81 ; Marijuana use F12.90 ; Psychophysiological insomnia F51.04 ; Nonsuicidal self-harm R45.88 ; ADHD (attention deficit hyperactivity disorder) evaluation Z13.39 ; Nightmares F51.5 and ALCIRA (generalized anxiety disorder) F41.1 [facility] [address] [place] [address] 07/31/2024 James Pa Assessments Encounter Date Diagnosis (ICD Code) Assessment [...] Dihydroxy 07/14/2024 CBC 07/14/2024 COMPREHENSIVE METABOLIC PANEL (85673) AST (822) 07/14/2024 ALT (823) 07/14/2024 VITAMIN B12 (927) 07/14/2024 TSH W/REFLEX TO FT4 (78734) 07/14/2024 ADHD Testing 07/14/2024 Insurance Providers Payer Name Payer Address Payer Phone Subscriber Number Group Number Insured Name Patient Relationship to Insured Coverage Start Date Coverage End Date [facility] [address] [place] [address] [id number] Jose DanielAnat gamboahleen Self - patient is the insured [facility] [address] [place] [address] [id number] Tiffanie Martin Self - patient is the [...]
[2025-05-17 00:31] VITALS: BP 122/65; PULSE 88; RESP 18; TEMP 36.8
--- NOTE | 2025-05-17 00:36 | OBADM ---
This patient, Tiffanie Martin, admitted to the OB room Labor/Delivery/Recovery 118 for observation. Patient/family oriented to hospital policies and general routines including ID bracelet, bed and alarms, visiting hours, pain management, procedures, bathroom and other care routines, personal items, smoking policy, room service/diet, and visiting hours. Patient/Family are encouraged to report perceived risks to care and to ask questions if they do not understand what they are told or what they should do.
[2025-05-17 00:39] LABS: Hematocrit 37.9 % (37.0-47.0); Hemoglobin 12.4 g/dL (12.0-15.0); Immature Granulocyte Percent A 0.6 % (0-0.5); Lymphocytes Absolute Auto 3.77 K/mm3 (0.9-3.2); Mean Corpuscular HGB Conc 32.7 g/dl (32-36); Mean Corpuscular Hemoglobin 29.2 pg (26-34); Mean Corpuscular Volume 89.2 fl (80-100); Nucleated Red Blood Cells Absolute Auto 0.000 K/mm3 (0.0-0.012); Nucleated Red Blood Cells Perc 0.0 % (0.0-0.2); Platelet Count Result 285 k/mm3 (150-375); Red Blood Count 4.25 M/mm3 (4.2-5.4); White Blood Count 14.1 K/mm3 (4.5-10.0)
[2025-05-17 00:44] LABS: Add Urine Microscopic? YES; Appearance Urine Clear (Clear); Glucose Urine UA Negative (Negative); Leukocyte Esterase Ur 1+ LEU/UL (Negative); Nitrate Urine Negative (Negative); Non Pathogenic Casts 0-2; Specific Grav Ur 1.021 (1.001-1.035)
[2025-05-17 00:45] VITALS: BP 112/69; PULSE 100
[2025-05-17 00:45] LABS: Total Protein Urine Random < 5 mg/dL; Ur Ttl Prot Creatinine Ratio < 0.04 mg/mg (0-0.20)
[2025-05-17 00:48] LABS: Alanine Aminotransferase 23 U/L (6-35); Albumin Level 3.5 g/dL (3.5-5.1); Alkaline Phosphatase 83 U/L (38-126); Anion Gap 6 mmol/L (4-12); Aspartate Amino Transferase 23 U/L (14-36); Bilirubin,Total 0.2 mg/dL (0.2-1.3); Blood Urea Nitrogen 9 mg/dL (7-17); Calcium 9.0 mg/dL (8.4-10.2); Carbon Dioxide 19 mmol/L (22-30); Chloride 108 mmol/L (98-107); Estimated CRCL calculation 188 ml/min; Estimated Glomerular Filt Rate > 60; Glucose 112 mg/dL (65-110); Potassium 3.6 mmol/L (3.4-5.0); Sodium 133 mmol/L (137-145); Total Protein 6.4 g/dL (6.3-8.2); Uric Acid 3.4 mg/dL (2.5-7.5)
[2025-05-17 01:00] VITALS: BP 111/68; PULSE 115
[2025-05-17] MEDS: ACETAMINOPHEN 500 MG TABLET 1000 MG PO (01:10)
[2025-05-17] MEDS: ONDANSETRON HCL ODT 4 MG TABLET PO (01:10)
--- NOTE | 2025-05-17 01:15 | PC.NURSE ---
Addendum entered by Connie Servin RN 05/17/25 01:24: 101- RN called Dr. Bauman and reported pts arrival to unit with complaints of increased n/v and MARVIN. RN reported vital signs and results of UA and blood work. RN reported reactive NST and presence of uterine irritability and that pt denies feeling any cramping or contractions. Orders received. Original Note: 0009- Pt is a who presents to the unit with complaints of increased n/v as well as headache. Pt denies and RUQ pain, visual disturbances, LOF or vaginal bleeding and has positive movement. Pt states she did not take medication and has been able to keep some food down. Pt denies any complications this but states that the father of baby has been the cause of increased stress this week. 101- RN called Dr. Bauman and reported pts arrival to unit with complaints of increased n/v and MARVIN. RN reported vital signs and results of UA and blood work. Orders received. 102- RN discussed POC with patient. Pt agreeable to administration of tylenol, zofran, and d/c.
[2025-05-17 01:25] VITALS: BP 122/65; PULSE 88
== END 2025-05-17 01:14 | disposition home or self-care (01) ==
LOC: ANHOBOP 00:17 → ANHLDR 00:25
PROVIDERS: Obstetrics & Gynecology; Visit Provider Student in an Organized Health Care Education/Training Program
DX: O13.9 Gestational [pregnancy-induced] hypertension without significant proteinuria, unspecified trimester (principal); Z3A.00 Weeks of gestation of pregnancy not specified
CPT/HCPCS: 36415; 59025; 80053; 81001; 82570; 84156; 84550; 85025; 87086; 99199; A9270

== ENCOUNTER 2025-06-01 15:57 | Observation (INO) | payer OTHER, SELFPAY ==
[2025-06-01] VITALS (25 sets, daily range): BP systolic 118–122; BP diastolic 73–82; PULSE 87–112; O2SAT 97–100
--- OUTSIDE RECORDS SUMMARY | 2025-06-01 16:02 | XMS_ITS ---
Author Organization [facility] (ClinicalSummary Clone) Address Unknown Care Team Providers Care Moisture Meter Operator Name Role Phone Unavailable Primary Care Physician Unavailab le Results * [UNITY] CARRIER SCREEN Performed by: [employer] Value Range Date Sickle Cell Disease/Beta-Thalassemia/Hemo globinopathies carrier screen NEGATIVE 01/27/2025 01:42 am [facility] Alpha-Thalassemia carrier screen NEGATIVE 01/27/2025 01:42 am [facility] Cystic Fibrosis carrier screen NEGATIVE 01/27/2025 01:42 am [facility] Spinal Muscular Atrophy carrier screen NEGATIVE 2 SMN1 copies, SNP not present 01/27/2025 01:42 am [place] For detailed report, see PDF See PDF 01/27/2025 01:42 am UT 01/27/2025 01:4 2 am [facility] Social History Observation Value Start Date End Date
--- OUTSIDE RECORDS SUMMARY | 2025-06-01 16:02 | XMS_ITS ---
Author Organization [facility] (ClinicalSummary Clone) Address Unknown Care Team Providers Care Estimator Paperboard Boxes Name Role Phone Unavailable Primary Care Physician Unavailab le Results * [UNITY] ANEUPLOIDY NIPT Performed by: [employer] Value Range Date Fraction 6.8% 01/19/2025 09 :47 pm UTC Sex Chromosome Aneuploidy NOT DETECTED 09:47 pm UTC Monosomy X LOW RISK <1 in 10,000 2024 09:47 pm UTC Trisomy 13 LOW RISK <1 in 10,000 2024 09:47 pm UTC Trisomy 18 LOW RISK <1 in 10,000 2024 09:47 pm UTC Trisomy 21 LOW RISK <1 in 10,000 2024 09:47 pm UTC Sex FEMALE 01/19/2025 09:4 7 pm UTC Gestation GARCIA 01/20/20 09:47 pm UTC For detailed report, see PDF See PDF 01/19/2025 09:47 pm UTC 01/19/2025 09:4 7 pm UTC Social History Observation Value Start Date End Date
--- OUTSIDE RECORDS SUMMARY | 2025-06-01 16:02 | XMS_ITS | Patient Health Record ---
Author Organization [facility] Address [address] [facility] [address] [place] [address] Care Team Providers Care Wink Cutter Operator Name Role Phone WyattMartín kennedy Unavailable [phone] James Pa Unavailable [phone] Results Component Value Reference Range Notes UDT Reviewed date:07/14/2024 01:54:28 PM Interpretation: Performing Lab: Notes/Report: THC P 0 - 50 ng/ml Cocaine N 0 - 300 ng/ml Amphetamine N 0 - 1000 ng/ml Buprenorphine (BUP) N 0 - 10 ng/ml Secobarbital (Bar) N 0 - 300 ng/ml Oxazepam (BZO) N 0 - 300 ng/ml 4-ntppzqhaoh-8,4-kzebrrik-2,3-diphenylpyrrolidine (AMANUEL P) N 0 - 300 ng/ml Methamphetamine (MET) N 0 - 1000 ng/ml Methylenedioxymethamphetamine (MDMA) N 0 - 500 ng/ml Morphine (MOP 300/[id number]) N 0 - 300 ng/ml Methadone (MTD) [...] 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 Tobacco Control (Standard) Question Answer Notes Tobacco [...] Status Risk Notes Problem Self-injurious behavior (finding) (693079624) Nonsuicidal self-harm (R45.88) Active confirmed Problem Bipolar 2 disorder (95192002) Bipolar 2 disorder (F31.81) Active confirmed Problem Generalized anxiety disorder (59462309) ALCIRA (generalized anxiety disorder) (F41.1) Active confirmed Problem Nightmares (097273471) Nightmares (F51.5) Active confirmed Problem Nondependent cannabis abuse (326522600) Marijuana use (F12.90) Active confirmed Problem Insomnia disorder related to another mental disorder (16575368) Psychophysiological insomnia (F51.04) Active confirmed Vital Signs Heart Rate 85 /min 07/14/2024 Blood pressure diastolic 54 mm Hg 07/14/2024 Weight-kg 77.2 kg 07/14/2024 Blood pressure systolic 90 mm Hg 07/14/2024 Weight 170.2 lbs 07/14/2024 Procedures Procedure Date Ordered Date Performed Result Body Sit e ADHD Testing 07/14/2024 N/A Encounters Encounter Location Date Provider Diagnosis [facility] [address] [place] [address] 07/14/2024 Martín Melo Bipolar 2 disorder F 31.81 ; Marijuana use F12.90 ; Psychophysiological insomnia F51.04 ; Nonsuicidal self-harm R45.88 ; ADHD (attention deficit hyperactivity disorder) evaluation Z13.39 ; Nightmares F51.5 and ALCIRA (generalized anxiety disorder) F41.1 [facility] [address] [place] [address] 07/31/2024 James Pa Assessments Encounter Date Diagnosis [...] Dihydroxy 07/14/2024 CBC 07/14/2024 COMPREHENSIVE METABOLIC PANEL (83315) AST (822) 07/14/2024 ALT (823) 07/14/2024 VITAMIN B12 (927) 07/14/2024 TSH W/REFLEX TO FT4 (11418) 07/14/2024 ADHD Testing 07/14/2024 Insurance Providers Payer Name Payer Address Payer Phone Subscriber Number Group Number Insured Name Patient Relationship to Insured Coverage Start Date Coverage End Date [facility] [address] [place] [address] [id number] Jose DanielAnat gamboahleen Self - patient is the insured [facility] [address] [place] [address] [id number] Tiffanie Martin Self - patient is the [...]
--- NOTE | 2025-06-01 16:53 | OBADM ---
This patient, Tiffanie Martin, admitted to the OB room OB Post 116 for observation. Patient/family oriented to hospital policies and general routines including ID bracelet, bed and alarms, visiting hours, pain management, procedures, bathroom and other care routines, personal items, smoking policy, room service/diet, and visiting hours. Patient/Family are encouraged to report perceived risks to care and to ask questions if they do not understand what they are told or what they should do.
[2025-06-01 17:40] LABS: Add Urine Microscopic? YES; Appearance Urine Clear (Clear); Glucose Urine UA Negative (Negative); Leukocyte Esterase Ur Negative LEU/UL (Negative); Need Manual Microscopic Reviewed; Nitrate Urine Negative (Negative); Non Pathogenic Casts 0-2; Specific Grav Ur 1.024 (1.001-1.035)
--- NOTE | 2025-06-02 07:41 | P.PNOB_ITS ---
OB - Triage/Final Diagnosis Visit Information Date of evaluation: 06/01/25 Reason for evaluation: threatened labor Comments/Additional reasons for admission: I have assessed the risk for this patient, Tiffanie Martin, and determined that she would benefit from observation care. Evaluation Laboratory results: Laboratory Tests 06/01/25 16:53 Urine Color Yellow Urine Appearance Clear Urine pH 6.0 Ur Specific [place] 1.024 Urine Protein Trace Urine Glucose (UA) Negative Urine Ketones Trace H Ur Blood (Man) Negative Urine Nitrate Negative Urine Bilirubin Negative Urine Urobilinogen 1.0 Ur Leukocyte Esterase Negative Add Ur Microanalysis Reviewed Urine RBC 0-2 Urine WBC 0-5 Ur Squamous Epith Cells None seen Urine Bacteria 1+ H Urine Casts 0-2 Urine Mucus Present Vital signs: Vital Signs - 24 hr 06/01/25 16:11 06/01/25 16:15 06/01/25 16:16 Pulse Rate 101 H Blood Pressure 122/79 Pulse Oximetry 97 97 06/01/25 16:21 06/01/25 16:26 06/01/25 16:30 Pulse Rate 98 Blood Pressure 118/73 Pulse Oximetry 97 98 06/01/25 16:31 06/01/25 16:32 06/01/25 16:37 Pulse Rate Blood Pressure Pulse Oximetry 98 98 99 06/01/25 16:42 06/01/25 16:45 06/01/25 16:47 Pulse Rate 97 Blood Pressure 119/82 Pulse Oximetry 99 99 06/01/25 16:52 06/01/25 16:57 06/01/25 17:02 Pulse Rate Blood Pressure Pulse Oximetry 98 99 99 06/01/25 17:07 06/01/25 17:12 06/01/25 17:17 Pulse Rate Blood Pressure Pulse Oximetry 99 100 99 06/01/25 17:22 06/01/25 17:27 06/01/25 17:32 Pulse Rate Blood Pressure Pulse Oximetry 100 99 98 06/01/25 17:37 06/01/25 17:42 06/01/25 17:47 Pulse Rate Blood Pressure Pulse Oximetry 99 98 99 06/01/25 17:52 Pulse Rate Blood Pressure Pulse Oximetry 99
== END 2025-06-01 18:01 | disposition home or self-care (01) ==
PROVIDERS: Admitting Provider Student in an Organized Health Care Education/Training Program; Visit Provider Student in an Organized Health Care Education/Training Program
DX: O47.03 False labor before 37 completed weeks of gestation, third trimester (principal); Z3A.35 35 weeks gestation of pregnancy
CPT/HCPCS: 81001; G0378; G0379

== ENCOUNTER 2025-06-16 17:04 | Outpatient (RCR) | payer OTHER, SELFPAY ==
--- NOTE | ~2025-06-16 | US_ITS ---
EXAM: RENAL EXAMINATION: US OB BPP wo non-stress DATE: 06/16/2025 18:43 CDT INDICATION: Decreased movement TECHNIQUE: Real-time transabdominal obstetric ultrasound. FINDINGS: 1 para 0 There is a single intrauterine gestation in vertex presentation. The placenta is anterior . No images of the cervix were provided. cardiac activity and movement is noted with a heart rate of 147 beats per minute. Biophysical profile: breathin of 2 movement: 2 of 2 tone: 2 of 2 Amniotic fluid pocket: 2 of 2 Total score: 8 of 8 Deepest vertical pocket of amniotic fluid measures 4.04 cm IMPRESSION: 1. Single intrauterine gestation in vertex presentation. 2: Total biophysical profile score of 8 out of 8. Reviewed, dictated and finalized at location A.
[2025-06-16 18:04] VITALS: BP 119/76; PULSE 102
[2025-06-16 19:12] VITALS: BP 119/75; PULSE 98
== END 2025-09-14 23:59 | disposition home or self-care (01) ==
LOC: ANHOBOP 17:04
PROVIDERS: Visit Provider Student in an Organized Health Care Education/Training Program
DX: O36.0130 Maternal care for anti-D [Rh] antibodies, third trimester, not applicable or unspecified (principal); Z3A.37 37 weeks gestation of pregnancy
CPT/HCPCS: 59025; 76819

== ENCOUNTER 2025-06-27 06:14 | Inpatient (IN) | payer OTHER, SELFPAY ==
[2025-06-27] VITALS (194 sets, daily range): BP systolic 97–152; BP diastolic 49–120; PULSE 65–277; RESP 18; TEMP 36.2–37.4; O2SAT 85–100; BMI 35.1
--- OUTSIDE RECORDS SUMMARY | 2025-06-27 06:47 | XMS_ITS | Patient Health Record ---
Author Organization [facility] [email or web address] Address [address] [facility] [address] [place] [address] Care Team Providers Care Career Development Associate Name Role Phone WyattMartín kennedy Unavailable [phone] James Pa Unavailable [phone] Results Component Value Reference Range Notes UDT Reviewed date:07/14/2024 01:54:28 PM Interpretation: Performing Lab: Notes/Report: THC P 0 - 50 ng/ml Cocaine N 0 - 300 ng/ml Amphetamine N 0 - 1000 ng/ml Buprenorphine (BUP) N 0 - 10 ng/ml Secobarbital (Bar) N 0 - 300 ng/ml Oxazepam (BZO) N 0 - 300 ng/ml 3-cukeuzhobg-3,2-ghtckjhp-1,3-diphenylpyrrolidine (AMANUEL P) N 0 - 300 ng/ml Methamphetamine (MET) N 0 - 1000 ng/ml Methylenedioxymethamphetamine (MDMA) N 0 - 500 ng/ml Morphine (MOP 300/[id number]) N 0 - 300 ng/ml Methadone (MTD) N 0 - 300 ng/ml Phencyclidine (PCP) N 0 - 25 ng/ml Nortriptyline (TCA) N 0 - 1000 ng/ml Oxycodone N 0 - 300 ng/ml x N 0 - 300 ng/ml Reason For Referral No Information Medications Medication SIG (Take, Route, Frequency, Duration) Notes Start Date End Date Status Contrave 8-90 MG Tablet Extended Release 12 Hour TAKE ONE TABLET BY MOUTH EVERY DAY Oral; Duration: 14 Days Active metFORMIN HCl 500 MG Tablet TAKE TWO TAB LETS BY MOUTH TWICE A DAY Oral; Duration: 30 Days Active Vitamin D 50 MCG (1999 UT) Tablet 1 tablet Orally Once a day Active ARIPiprazole 15 MG Tablet 1 tablet Orall y Once a day; Duration: 14 days 07/14/2024 Active Tri-Rosalind 0.18/0.215/0.25 MG-35 MCG Tablet TAKE ONE TABLET BY MOUTH EVERY DAY Oral; Duration: 84 Days Active Social History Tobacco Use: Social History Observation Description Date Details (start date - stop date) Current Smoker NA - NA Sex Assigned At : Social History Observation Description Sex Assigned At Female Social History Miscellaneous: Social Info Question Answer Notes Education: Do you go to school? Yes Safety issues: Are there any firearms in the house? 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 Drug/Alcohol: Social Info Question Answer Notes Drugs Have you used drugs other than those for medical reasons in the past 12 months? Yes Methamphetamine? No Crack? No LSD? No Ecstacy? No Prescription opiates? Yes Marijuana? Yes Ketamine? No PCP? No Is there a minor (18 years or younger) at risk at home? No Are you still using? Yes Do you want treatment? No AUDIT-C (Standard) Points 7 Interpretation Positive Did you have a drink contain ing alcohol in the past year? Yes How often did you have six or more drinks on one occasion in the past year? 2 to 4 times a month (2 points) How many drinks did you have on a typical day when you were drinking in the past year? 5 or 6 drinks (2 points) How often did you have a drink containing alcohol in the past year? 2 to 3 times a week (3 points) Tobacco Use: Social Info Question Answer Notes Tobacco Control (Standard) Tobacco use: Current smoker How soon after you wake up do you smoke your first cigarette? Within 5 minutes Are you interested in quitting? 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) Marijuana use (F12.90) Active confirmed Problem Insomnia disorder related to another mental disorder (58584558) Psychophysiological insomnia (F51.04) Active confirmed Vital Signs Heart Rate 85 /min 07/14/2024 Blood pressure diastolic 54 mm Hg 07/14/2024 Weight-kg 77.2 kg 07/14/2024 Blood pressure systolic 90 mm Hg 07/14/2024 Weight 170.2 lbs 07/14/2024 Procedures Procedure Date Ordered Date Performed Result Body Sit e ADHD Testing 07/14/2024 N/A Encounters Encounter Location Date Provider Diagnosis [facility] [address] [place] [address] [address] 07/14/2024 Martín Clubb Bipolar 2 disorder F 31.81 ; Marijuana use F12.90 ; Psychophysiological insomnia F51.04 ; Nonsuicidal self-harm R45.88 ; ADHD (attention deficit hyperactivity disorder) evaluation Z13.39 ; Nightmares F51.5 and ALCIRA (generalized anxiety disorder) F41.[address] [facility] [address] [place] [address] [address] 07/31/2024 James Pa Assessments Encounter Date Diagnosis [...] anxiety management. She rates current anxiety at 10. 4. Attention Deficit Hyperactivity Disorder (ADHD) - [...] Dihydroxy 07/14/2024 CBC 07/14/2024 COMPREHENSIVE METABOLIC PANEL (85223) AST (822) 07/14/2024 ALT (823) 07/14/2024 VITAMIN B12 (927) 07/14/2024 TSH W/REFLEX TO FT4 (34447) 07/14/2024 ADHD Testing 07/14/2024 Insurance Providers Payer Name Payer Address Payer Phone Subscriber Number Group Number Insured Name Patient Relationship to Insured Coverage Start Date Coverage End Date [facility] [address] [place] [address] [id number] Tiffanie Martin Self - patient is the insured [facility] [address] [place] [address] [id number] Tiffanie Martin Self - patient is the [...]
[2025-06-27 07:46] LABS: Hematocrit 40.0 % (37.0-47.0); Hemoglobin 13.3 g/dL (12.0-15.0); Immature Granulocyte Percent A 2.8 % (0-0.5); Lymphocytes Absolute Auto 3.66 K/mm3 (0.9-3.2); Mean Corpuscular HGB Conc 33.3 g/dl (32-36); Mean Corpuscular Hemoglobin 29.2 pg (26-34); Mean Corpuscular Volume 87.7 fl (80-100); Nucleated Red Blood Cells Absolute Auto 0.000 K/mm3 (0.0-0.012); Nucleated Red Blood Cells Perc 0.0 % (0.0-0.2); Platelet Count Result 261 k/mm3 (150-375); Red Blood Count 4.56 M/mm3 (4.2-5.4); White Blood Count 12.7 K/mm3 (4.5-10.0)
[2025-06-27] MEDS: LACTATED RINGERS 1,000 ML 125 ML IV CONT ×3 (08:01→14:31)
[2025-06-27] MEDS: OXYTOCIN 30 UNITS/NS 500 ML 30 UNITS/500 ML BAG 6 UNITS IV CONT (08:02)
--- NOTE | 2025-06-27 08:26 | LDADM ---
This patient, Tiffanie Martin, was admitted to Labor/Delivery/Recovery 104 on 06/27/25 at 06:14. Plans for labor, pain management and were discussed with patient. Patient/family oriented to hospital policies and general routines including ID bracelet, bed and alarms, visiting hours, pain management, procedures, bathroom and other care routines, personal items, smoking policy, room service/diet and guest tray routines, security routines, and visiting hours. Patient/Family are encouraged to report perceived risks to care and to ask questions if they do not understand what they are told or what they should do. See OBIX for further documentation.
[2025-06-27 08:34] LABS: Cannabinoid Screen Urine Negative (Negative)
[2025-06-27 08:57] LABS: Syphilis IgG/IgM Antibody Non-Reactive (Nonreactive)
--- NOTE | 2025-06-27 09:49 | WPDANESEPP ---
Anes - Eval Pre Procedure Procedure: labor pain management Date/Time: 06/27/25 09:49 Surgeon: kaylynn Preop Diagnosis: pain during labor Pre Op Diagnosis: labor Patient Data Age: 19 Gender: F Height: 1.73 m Weight: 104.7 kg Last Vital Signs Temp 97.4 F L 06/27/25 09:44 Pulse 84 06/27/25 08:31 BP 152/96 H 06/27/25 08:31 Pulse Ox 99 06/27/25 09:49 O2 Del Method Room Air 06/27/25 08:24 Allergies Allergy/AdvReac Type Severity Reaction Status Date / Time No Known Allergies Allergy Verified 06/25/25 15:01 Home Medications ?Medication ?Instructions ?Recorded ?Confirmed ?Type vits no.126-ferrous fum 1 tablet PO DAILY #90 tabs 03/24/25 06/25/25 Rx 28 mg iron-folic acid 800 mcg tablet (Classic ) Laboratory Tests 06/27/25 07:37 WBC 12.7 H K/mm3 (4.5-10.0) RBC 4.56 M/mm3 (4.2-5.4) Hgb 13.3 g/dL (12.0-15.0) Hct 40.0 % (37.0-47.0) MCV 87.7 fl (80-100) MCH 29.2 pg (26-34) MCHC 33.3 g/dl (32-36) RDW 13.0 % (11.5-14.5) Plt Count 261 k/mm3 (150-375) MPV 10.7 H fl (7.4-10.4) Immature Gran % (Auto) 2.8 H % (0-0.5) Neut % (Auto) 58.8 % (45.5-73.1) Lymph % (Auto) 28.8 % (18.3-44.2) [place] % (Auto) 7.9 % (2.6-8.5) Eos % (Auto) 1.2 % (0-4.4) Baso % (Auto) 0.5 % (0.2-1.2) Lymph # (Auto) 3.66 H K/mm3 (0.9-3.2) [place] # (Auto) 1.0 H K/mm3 (0.1-0.6) Eos # (Auto) 0.2 K/mm3 (0-0.3) Baso # (Auto) 0.1 K/mm3 (0.0-0.1) Abs Immat Gran (auto) 0.36 H K/mm3 (0.00-0.031) Absolute Neuts (auto) 7.5 H K/mm3 (1.3-6.7) Absolute Nucleated RBC 0.000 K/mm3 (0.0-0.012) Nucleated RBC % 0.0 % (0.0-0.2) Urine Opiates Screen Negative (Negative) Urine Methadone Screen Negative (Negative) Ur Barbiturates Screen Negative (Negative) Ur Phencyclidine Scrn Negative (Negative) Ur Amphetamine Screen Negative (Negative) U Benzodiazepines Scrn Negative (Negative) Urine Cocaine Screen Negative (Negative) U Cannabinoids Screen Negative (Negative) Syphilis IgG/IgM Ab Non-reactive (Nonreactive) Blood Type A Positive Antibody Screen Negative Patient hx anesthesia problems: none Family hx anesthesia problems: none Results Review: All pre-operative results and documents have been reviewed as part of the pre-operative evaluation. [facility] Past Medical History Medical History Pertussis Surgical History Surgical History Hx of tonsillectomy H/O bilateral breast reduction surgery Family History Family History Mother Diabetes mellitus Father Heart disease Lung cancer Hypertension Sibling Asthma Social History Social History Smoking status: Former smoker Tobacco type: e-cigarettes/vaping Additional smoking assessment comments: trying to quit Alcohol intake: former Alcohol use details: rarely Substance use: former Substance use type: marijuana and crack/cocaine Do You Feel Safe in your Home?: Yes Lack of Transportation: No Lack of Food: Never True Current Housing: I Have Housing Concerned About Future Housing: No Difficulty Paying Gas/Electric Bills: No Difficulty Paying for Meds: No Currently Unemployed: No Education: High School Diploma/GED Difficulty w/ Childcare or Family Care: No Living arrangements: with family Occupation/Education: unemployed Gender identity (if verbalized by the patient): Female Spiritual care concerns: No Exam Day of Procedure 06/27/25 09:49
[2025-06-27] MEDS: FAMOTIDINE 20 MG/2 ML VIAL IV PUSH (11:36)
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
--- NOTE | 2025-06-27 14:34 | PC.NURSE ---
IV would not continue to work on the left arm. Fluids moved to the right arm and have continued on that site throughout the day. Mistakenly documented left arm during the day.
--- NOTE | 2025-06-27 20:01 | WPDHPUPDATE1 ---
History and Physical Update Update Date/Time: 06/27/25 20:01 History and Physical has been reviewed, including an updated exam of the patient. There are NO changes in the patient's condition. Risks, benefits, and alternatives have been discussed and questions answered. Patient agrees to proceed with procedure.
--- NOTE | 2025-06-27 20:01 | WPDOBADMIT ---
Obstetrics - Admit Note Admission Note: record reviewed. No pertinent additions to the history and/or any subsequent changes in the physical findings that are not consistent with the expected course of the were found. Additions to the history and/or subsequent changes in the physical findings follow. None.
--- NOTE | 2025-06-27 20:01 | PM.OBPRVD ---
OB - Vaginal Delivery Note Procedure Delivery date: 06/27/25 Induction method: None Delivery augmentation: Pitocin Delivery monitor: External FHT and Internal Uterine Route of delivery: Episiotomy description: None Laceration Description: Perineal - 2nd Degree Delivery repair: chromic Specimen: No Quantitative Blood Loss (ml): 300 Anesthesia type: Epidural Disposition: Floor Complications: No immediate complications Narrative: Patient prepped draped in this procedure. Internal expulsive efforts readily delivered vertex, nuchal cord was noted and reduced. Rest of baby was delivered difficulty. Cord clamped and cut and placenta delivered. Second-degree laceration was approximated using 2-0 chromic to approximate the vaginal tissue in a running interlocking manner, deep tissue and a subcuticular layer to approximate perineum. At this point the procedure was considered terminated, there was no significant bleeding immediate postoperative condition of mother and baby both excellent. [place] Baby Gestational Age by Date: 39 Infant gender: Female presentation: vertex position: Right Occiput Anterior Placenta delivery description: Spontaneous Cord Vessel Description: 3 Vessels, Nuchal Cord and Reduced
[2025-06-27] MEDS: IBUPROFEN 600 MG TABLET PO (20:18)
[2025-06-27] MEDS: OXYTOCIN 30 UNITS/NS 500 ML 30 UNITS/500 ML BAG 125 UNITS IV CONT (20:18)
--- NOTE | 2025-06-27 22:07 | PC.NURSE ---
2154- responded to page. RN reported pts arrival to unit with complaints of contractions and LOF. RN reported SVE, absence of contractions and negative ROM+ as well as reactive FHT's. Orders received for discharge.
--- NOTE | 2025-06-27 23:12 | OBPPTRN ---
Patient transferred to post room #288 via wheelchair at 2309. Support person present. Oriented to unit, room, information board, rooming in, admission packet and security measures. Patient verbalizes understanding.
[2025-06-28] MEDS: ACETAMINOPHEN 325 MG TABLET 650 MG PO ×3 (00:22→17:17)
[2025-06-28] MEDS: LANOLIN (LANSINOH) 7.5 GM CREAM 1 APPLIC TOPICAL (00:24)
[2025-06-28] MEDS: IBUPROFEN 600 MG TABLET PO ×3 (02:34→17:17)
[2025-06-28] MEDS: HYDROcodone/acetaminophen (*CRX) 5-325 MG TABLET 1 TAB PO ×2 (04:31→13:49)
[2025-06-28 04:33] VITALS: BP 129/87; PULSE 108; RESP 20; TEMP 37; O2SAT 97
[2025-06-28 05:06] LABS: Hematocrit 34.8 % (37.0-47.0); Hemoglobin 11.3 g/dL (12.0-15.0)
[2025-06-28 07:00] VITALS: BP 112/73; PULSE 82; RESP 16; TEMP 36.8; O2SAT 97
[2025-06-28] MEDS: DOCUSATE SODIUM 100 MG CAPSULE PO ×2 (09:15→17:17)
[2025-06-28] MEDS: MULTIVIT/MIN/PREN/FOL AC/IRON TABLET 1 TAB PO (09:15)
--- NOTE | 2025-06-28 10:12 | PM.OBDSVD ---
DS: Admitting Diagnosis Discharge Date [id number] Admitting Diagnosis DS: Discharge Diagnosis Discharge Diagnosis (1) , delivered: Code(s): O80 - Encounter for full-term uncomplicated delivery Status: Acute OB - DS: Summary OB Procedures : None OB Procedures Intrapartum: Spontaneous Vag Delivery OB Procedures: : None Peripartum Data Laceration Description: Perineal - 2nd Degree Episiotomy description: None Time Spent with Patient Time attestation: Total time spent providing and/or coordinating discharge services: DS: Data Data Completed and Pending Labs on day of discharge: Labs from last 24 hours 06/28/25 04:40 Hgb 11.3 L Hct 34.8 L Discharge Plan Discharge Discharging Clinician: Anselmo Diaz Patient Disposition: Home Activity: pelvic rest Diet: as tolerated Patient Instructions: Antibiotic Form Patient Language: French Stand Alone Forms: General Discharge Information Follow-up/Referrals: Nate Rey MD [Physician, DIRECT SERVICE PROFESSIONAL] - 4 Weeks Discharge Medications: New ibuprofen 600 mg Tablet 600 mg PO Q6H PRN (Reason: Cramping) Qty: 30 0RF sertraline [Zoloft] 25 mg tablet 25 mg PO DAILY Qty: 90 0RF Continued Classic 28 mg iron- 800 mcg tablet 1 tablet PO DAILY Qty: 90 2RF Date of admission: 06/27/25 06:14 Primary Care Provider: PHYSICIAN,REPAIR ORDER CLERK Admitting Provider: Nate Rey Attending physician on admission: Nate Rey Condition: Stable
[2025-06-28 11:20] VITALS: BP 127/85; PULSE 97; RESP 16; TEMP 36.6; O2SAT 98
--- NOTE | 2025-06-28 13:27 | WPDANLDPN2 ---
Anes-Prog Note L&D Date/Time: 06/28/25 13:27 Comfortable throughout: labor and delivery Neuraxial method: epidural Epidural/Spinal procedure site: clean & non-tender Neuro status: Neuro function grossly intact. Cardiovascular status: normal Respiratory status: normal Airway patency: baseline Mental status: baseline Post-Op hydration status: normal Vital Signs: Last Vital Signs Temp 97.9 F 06/28/25 11:20 Pulse 97 06/28/25 11:20 Resp 16 06/28/25 11:20 BP 127/85 06/28/25 11:20 Pulse Ox 98 06/28/25 11:20 O2 Del Method Room Air 06/28/25 11:20 Pain score (VAS): 0 I/O: Intake & Output 06/27/25 06/28/25 06/28/25 23:59 07:59 15:59 Intake Total 500 0 Output Total 300 Balance -300 500 0 Post-procedural complaints: none Patient feedback: Patient satisfied with anesthetic care.
[2025-06-28 19:45] VITALS: BP 125/83; PULSE 86; RESP 20; TEMP 36.6; O2SAT 97
[2025-06-28] MEDS: SERTRALINE HCL 25 MG TABLET PO (21:25)
[2025-06-29] MEDS: ACETAMINOPHEN 325 MG TABLET 650 MG PO (01:20)
[2025-06-29] MEDS: DOCUSATE SODIUM 100 MG CAPSULE PO ×2 (01:20→07:18)
[2025-06-29] MEDS: HYDROcodone/acetaminophen (*CRX) 5-325 MG TABLET 1 TAB PO ×2 (01:20→07:21)
[2025-06-29] MEDS: IBUPROFEN 600 MG TABLET PO ×2 (01:20→07:21)
[2025-06-29] MEDS: MULTIVIT/MIN/PREN/FOL AC/IRON TABLET 1 TAB PO (07:18)
--- NOTE | 2025-06-29 08:00 | PC.NURSE ---
Met with patient regarding needs. She states that is feeding well and that her nipples are feeling sore after cluster feeding last night (sore nipple handout given). Primary RN observed a feeding and states that baby was latched and positioned appropriately. Patient has a history of a breast reduction with nipple removal. She states that she was told at the time that the surgery should not affect future . We discussed the possibility of her milk coming in but not being able to be removed from the breast due to damaged milk ducts. Patient knows that watching for signs of effect is how she will know that baby is receiving all needed nutrition. We also discussed alcohol use and marijuana use with . Reviewed standard discharge information with patient including monitoring infant for required output, transition of stools, feeding 8-12 times every 24 hours, milk production, and follow up at [place] and with spa assistant manager in the first week of life. Parents are encouraged to take the feeding log and continue to track feedings and output for the first week . Offered outpatient resources with [facility] referral (faxed to [place]) and Services at [place]. Patient will receive an insurance pump before discharge today. Patient has the Mom/Baby Guide for further education and reference for common concerns, phone numbers, and guidance on when to call the doctor. A feeding plan was added to the ?s discharge plan. Patient states that she has no further questions or concerns regarding .???
--- NOTE | 2025-06-29 11:20 | PC.NURSE ---
Patient viewed the discharge video Mother & Baby Care, The First Two Weeks. Patient was given the opportunity and encouraged to ask questions. Patient verbalized understanding of information shared and has been given the mother/baby guide for home reference.
--- NOTE | 2025-06-29 12:08 | PC.NURSE ---
1158 Contacted Connie with Care Coordination, patient saw Leonardo Baer RN with Care Coordination over the weekend but patient still had some questions that she wanted to talk with the social worker palliative care regarding resources for full custody and safety precautions. Connie to call patient in her room. 1200 RN in room, patient asleep and grandmother holding baby. RN answered Connie's phone call, advised patient is asleep and left Connie's extension with the grandmother who will let the patient know that she can call her back when she wakes up.
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
[2025-06-30 11:35] VITALS: BP 129/77; PULSE 95; RESP 18; TEMP 36.6; O2SAT 100
== END 2025-06-29 14:38 | disposition home or self-care (01) | DRG 807 ==
LOC: ANHLDR 10:02 → ANHOB2 06-28 10:13 → ANHLDR 06-30 09:03 → ANHOB2 06-30 09:03
PROVIDERS: Admitting Provider Obstetrics & Gynecology; Visit Provider Obstetrics & Gynecology
DX: O69.81X0 Labor and delivery complicated by cord around neck, without compression, not applicable or unspecified (principal); Z37.0 Single live birth; Z3A.39 39 weeks gestation of pregnancy; O70.1 Second degree perineal laceration during delivery
CPT/HCPCS: 36415; 80307; 85014; 85018; 85025; 86593; 86850; 86900; 86901; A9270; J2590; J2795; J7120

== ENCOUNTER 2025-07-25 16:15 | Emergency (ER) | payer OTHER, SELFPAY ==
[2025-07-25 16:44] VITALS: BP 115/78; PULSE 100; RESP 16; TEMP 36.6; O2SAT 98
--- NOTE | 2025-07-25 17:00 | ED.EAR ---
HPI - Ear Problem General Chief complaint: Ear Stated complaint: ear ache Time Seen by Provider: 07/25/25 16:55 Source: patient and RN notes reviewed Mode of arrival: ambulatory Limitations: no limitations History of Present Illness HPI Narrative: 19-year-old female presents concern for left ear pain and drainage. Reports she gets frequent ear infections. She denies runny nose, stuffy nose, cough. MD Complaint: ear pain Related Data Allergies Allergy/AdvReac Type Severity Reaction Status Date / Time No Known Allergies Allergy Verified 07/25/25 16:44 Review of Systems Review of Systems: CONSTITUTIONAL: Denies malaise, chills, sweats, or fever. EYES: Denies visual changes, redness, or discharge. ENT: Denies rhinorrhea, congestion, sinus pain, and sore throat. Reports ear pain CARDIOVASCULAR: Denies chest pain, palpitations, or edema. RESPIRATORY: Denies cough. Denies dyspnea. GASTROINTESTINAL: Denies abdominal pain, nausea, vomiting, diarrhea SKIN: Denies rash or itching. MUSCULOSKELETAL: Denies myalgia. NEUROLOGIC: Denies headache. All systems reviewed & are unremarkable except as noted in HPI and below PMFSH Past Medical History Medical History Pertussis Surgical History Surgical History Hx of tonsillectomy H/O bilateral breast reduction surgery Family History Family History Mother Diabetes mellitus Father Heart disease Lung cancer Hypertension Sibling Asthma Social History Social History Smoking status: Former smoker Tobacco type: e-cigarettes/vaping Additional smoking assessment comments: trying to quit Alcohol intake: former Alcohol use details: rarely Substance use: former Substance use type: marijuana and crack/cocaine Do You Feel Safe in your Home?: Yes Lack of Transportation: No Lack of Food: Never True Current Housing: I Have Housing Concerned About Future Housing: No Difficulty Paying Gas/Electric Bills: No Difficulty Paying for Meds: No Currently Unemployed: No Education: High School Diploma/GED Difficulty w/ Childcare or Family Care: No Living arrangements: with family Occupation/Education: unemployed Gender identity (if verbalized by the patient): Female Spiritual care concerns: No Comments At time of signature, agree with nursing past medical, surgical, social and family history. There is no relevant family history pertinent to the presenting complaint Exam Narrative: GENERAL: Well-appearing, well-nourished, and in no acute distress. HEAD: Normocephalic EYES: PERRLA, conjunctivae clear ENT: Nares clear. Mucous membranes moist. TM pearly gaytan with dull light reflex on the right, TM not visible on the left due to EAC swelling; left tragal tenderness, EAC edema with white drainage noted. No post or pre-auricular erythema, induration, or warmth noted. Oropharynx not erythematous without lesions. Tonsils not enlarged and without exudate, no drooling, no hoarseness, no trismus, uvula midline. NECK: Supple. No lymphadenopathy CHEST: Clear to auscultation, breath sounds equal. No wheezing, rhonchi, rales, or stridor. No respiratory distress, speaks in full sentences. HEART: Regular rate and rhythm. No murmur heard. SKIN: Warm, dry, no rash. NEURO: Alert and oriented x3. PSYCH: Normal mood and affect Course Course Emergency Course: Patient is aware of diagnosis, understands and agrees to treatment plan. Anticipatory guidance given. Patient agrees to follow-up as directed and is aware of reasons to seek care at the emergency department. Portions of this record may have been created with voice recognition software Level of Care: [facility] Visit Vital Signs Vital signs: Vital Signs Temperature 97.9 F 07/25/25 16:44 Pulse Rate 100 07/25/25 16:44 Respiratory Rate 16 07/25/25 16:44 Blood Pressure 115/78 07/25/25 16:44 Pulse Oximetry 98 07/25/25 16:44 Temperature 97.9 F 07/25/25 16:44 Pulse Rate 100 07/25/25 16:44 Respiratory Rate 16 07/25/25 16:44 Blood Pressure 115/78 07/25/25 16:44 Pulse Oximetry 98 07/25/25 16:44 Reviewed. Medical Decision Making MDM Narrative Medical decision making narrative: I evaluated this in the [facility]. History is obtained from patient who is an independent historian and physical exam was performed.? Available medical records were reviewed. ? Exam findings and relevant testing show no acute concerns or changes; patient is non-toxic appearing and is in no distress. Differential diagnosis considered: Small virus, strep pharyngitis, allergic rhinitis, upper respiratory tract infection, sinusitis, rhinosinusitis, nasopharyngitis. viral pharyngitis, otitis media, otitis externa, otitis effusion, pre/post auricular cellulitis, mastoiditis, cerumen impaction, foreign body. Exam findings show no acute concerns or changes; patient is non-toxic appearing and is in no distress. Patient is appropriate for outpatient treatment and follow-up. ? Differential diagnosis and treatment plan were discussed with the patient. Patient agrees with discussion and after shared medical decision making agrees with plan of care. All questions were answered to the patient's satisfaction. Patient is appropriate for outpatient treatment and follow-up. Vital Signs Vital Signs: Vital Signs Temperature 97.9 F 07/25/25 16:44 Pulse Rate 100 07/25/25 16:44 Respiratory Rate 16 07/25/25 16:44 Blood Pressure 115/78 07/25/25 16:44 Pulse Oximetry 98 07/25/25 16:44 Temperature 97.9 F 07/25/25 16:44 Pulse Rate 100 07/25/25 16:44 Respiratory Rate 16 07/25/25 16:44 Blood Pressure 115/78 07/25/25 16:44 Pulse Oximetry 98 07/25/25 16:44 Critical Care Time Critical Care Time Critical Care Time: No Discharge Plan Discharge Clinical Impression: Otitis externa Patient Disposition: Home Condition: Stable Instructions: How to Use Ear Drops (ED) Additional Instructions: 1) Please follow-up with your primary care doctor as needed. 2) If you have any urgent concerns please go to the ER. 3) Please take medications as prescribed and take Tylenol or ibuprofen as needed for pain. 4) Please read and follow information included in discharge instructions. Patient Language: Portuguese Prescriptions: New ofloxacin 0.3 % drops 5 drp LEFT EAR DAILY 7 Days Qty: 10 0RF No Action citalopram 10 mg tablet 10 mg PO DAILY Qty: 30 0RF Classic 28 mg iron- 800 mcg tablet 1 tablet PO DAILY Qty: 90 2RF Follow-up/Referrals: PHYSICIAN,SENIOR COMPENSATION ANALYST [Primary Care Provider, Internal Medicine] Time of Disposition: 17:04
== END 2025-07-25 17:10 | disposition home or self-care (01) ==
PROVIDERS: Emergency Provider Nurse Practitioner
DX: H60.92 Unspecified otitis externa, left ear (principal); F17.290 Nicotine dependence, other tobacco product, uncomplicated
CPT/HCPCS: 99213; G0463

== ENCOUNTER 2025-08-12 09:20 | Outpatient (CLI) | payer OTHER, MEDICAID, SELFPAY ==
[2025-08-12 11:27] LABS: Beta HCG Quantitative < 2.39 mIU/ML
== END 2025-08-12 09:21 | disposition home or self-care (01) ==
LOC: ANHLAB 09:21
PROVIDERS: Visit Provider Student in an Organized Health Care Education/Training Program
DX: N92.6 Irregular menstruation, unspecified (principal)
CPT/HCPCS: 36415; 84702